=== PATIENT | female | born 2000 | race Hispanic/Latino ===

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

== ENCOUNTER 2019-05-07 08:09 | Day surgery (SDC) | payer MEDICAID ==
[~2019-05-07] VITALS: Ht 154.9 cm; Wt 121.6 kg
[2019-05-07] VITALS (16 sets, daily range): BP systolic 98–128; BP diastolic 60–72
[2019-05-07] MEDS ORDERED: SODIUM CHLORIDE 0.9% 1000ML 1,000 ML IV ONE (08:58)
[2019-05-07] MEDS ORDERED: HYDROXYZINE (12:49)
[2019-05-07] MEDS ORDERED: METH36TA PO (12:49)
[2019-05-07] MEDS ORDERED: IBUP-2353 PO (12:51)
[2019-05-07] MEDS ORDERED: MELA5CAP PO (12:51)
[2019-05-07] MEDS ORDERED: PROPOFOL 10 MG/ML 20ML VIAL IV ONE (13:35)
--- NOTE | 2019-05-07 13:57 | NUR ---
ANESTHESIA GRANTS ASSISTANT NELLIE WALLS AT BEDSIDE. ASSESSED PATIENT DUE TO PATIENT NOT OPENING EYES ON CALLING HER NAME OR UNRESPONSIVE TO VERBAL COMMANDS , POST PROCEDURE. PT VS STABLE SINCE SHE ARRIVED FROM PROCEDURE AT 1343. MOM AT BEDSIDE CRYING WORRIED ABOUT HER DAUGHTER NOT RESPONDING . PATIENT BREATHING NORMAL. VS STABLE . PER ANESTHESIA " PATIENT WILL TAKE A WHILE TO AROUSED FROM ANESTHESIA WILL CONTINUE TO MONITOR
[2019-05-07] MEDS ORDERED: MEPERIDINE-PF 25 MG/ML SYG ONE (14:27)
--- NOTE | 2019-05-07 14:37 | NUR ---
ASSESS DR. KINNEY AT BEDSIDE CAME TO EVALUATE PATIENT, VS CONTINUE TO BE WNL. PATIENT ABLE TO SQUEEZE MY HAND WHEN INSTRUCTED TO . BUT UNABLE TO OPEN HER EYES. . RESP EVEN AND UNLABORED. MOM AT BEDSIDE. CONTINUES TO VOICED HER WORRYNESS . WILL CONTINUE TO MONITOR
--- NOTE | 2019-05-07 14:53 | NUR ---
ASSESS PT AWAKE AND ALERT, PT OPEN HER EYES, FOLLOWING COMMANDS. NO DISTRESS NOTED. VS STABLE. MOM AT BEDSIDE.
--- NOTE | 2019-05-07 14:55 | NUR ---
DC DC INSTRUCTIONS GIVEN TO PT MOM , INSTRUCTED TO F/U WITH DR. POLLARD.PATIENT FULLY AWAKE, DENIES ANY PAIN OR DISCOMFORTS.
--- NOTE | 2019-05-07 15:25 | NUR ---
DC PT DC HOME VIA WC, NO DISTRESS NOTED. ACCOMPANIED BY MOM
[2019-05-07] MEDS ORDERED: MEPERIDINE-PF 25 MG/ML SYG IV ONE (16:45)
== END 2019-05-07 15:25 | disposition home or self-care (01) ==
LOC: DAH 08:09 → ENDO 08:09
PROVIDERS: ATTEND Surgery
DX: K31.7 Polyp of stomach and duodenum (principal); K21.9 Gastro-esophageal reflux disease without esophagitis; E66.01 Morbid (severe) obesity due to excess calories; Z79.899 Other long term (current) drug therapy
CPT/HCPCS: 43235; 81025; A4606; J2175; J2704; J7030